=== PATIENT | female | born 2000 | race Caucasian/White ===

== ENCOUNTER 2020-07-11 15:35 | Emergency (ER) | payer BC, SELFPAY ==
--- NOTE | ~2020-07-11 | US_ITS ---
EXAMINATION: US abdomen limited DATE: 07/11/2020 17:44 INDICATION: Right upper quadrant abdominal pain TECHNIQUE: Multiple grayscale and Doppler ultrasound images of the abdomen were obtained. COMPARISON: None FINDINGS: Region of the pancreas is obscured due to patient body habitus. Liver is also suboptimally visualized but has normal echogenicity and contour, with a smooth surface. No liver lesion identified. No intra hepatic biliary duct dilation suspected. Portal venous flow was seen in the hepatopetal, normal direc tion and has normal Doppler waveform. Normal decompressed gallbladder which limits evaluation. No cali dent cholelithiasis. Common bile duct measures 5 mm in diameter which is normal. Visualized portion o f the right kidney demonstrates normal contour and echogenicity with no hydronephrosis. Normal direct ional flow identified in the proximal inferior vena cava which is also poorly visualized. IMPRESSION: 1. Unremarkable but limited right upper quadrant ultrasound due to patient body habitus as well as po stprandial state resulting in a decompressed gallbladder. Reviewed, dictated and finalized at location A. [facility] [employer] IMPRESSION: 1. Unremarkable but limited right upper quadrant ultrasound due to patient body habitus as well as postprandial state resulting in a decompressed gallbladder.
[2020-07-11 15:43] VITALS: BP 140/90; PULSE 98; RESP 15; TEMP 36.9; O2SAT 99
[2020-07-11 15:45] VITALS: RESP 17; TEMP 36.7
[2020-07-11 16:04] LABS: Basophils Percent Auto 0.4 % (0.2-1.2); Eosinophils Absolute Auto 0.1 K/mm3 (0-0.3); Eosinophils Percent Auto 1.3 % (0-4.4); Hematocrit 40.4 % (37.0-47.0); Hemoglobin 13.3 g/dL (12.0-15.0); Immature Granulocyte Absolute 0.05 K/mm3 (0.00-0.031); Immature Granulocyte Percent A 0.6 % (0-0.5); Lymphocytes Absolute Auto 2.75 K/mm3 (0.9-3.2); Lymphocytes Percent Auto 35.5 % (18.3-44.2); Mean Corpuscular HGB Conc 32.9 g/dl (32-36); Mean Corpuscular Hemoglobin 29.1 pg (26-34); Mean Corpuscular Volume 88.4 fl (80-100); Mean Platelet Volume 9.7 fl (7.4-10.4); Monocytes Absolute Auto 0.4 K/mm3 (0.1-0.6); Monocytes Percent Auto 5.2 % (2.6-8.5); Neutrophils Absolute Auto 4.4 K/mm3 (1.3-6.7); Platelet Count Result 329 k/mm3 (150-375); Red Blood Count 4.57 M/mm3 (4.2-5.4); Red Cell Distribution Width 13.6 % (11.5-14.5); White Blood Count 7.7 K/mm3 (4.5-10.0)
[2020-07-11 16:12] LABS: Add Urine Microscopic? YES; Amorphous Sediment Urine Few; Appearance Urine Cloudy (Clear); Bacteria Urine Trace /hpf; Bilirubin Urine Negative (Negative); Blood Urine Negative (Negative); Color Urine Yellow (Yellow); Glucose Urine UA Negative (Negative); Ketones Urine Negative (Negative); Leukocyte Esterase Ur Negative LEU/UL (Negative); Mucus Urine Rare /lpf; Nitrate Urine Negative (Negative); Protein Urine Negative (Negative); RBC Urine 0-2 /hpf (0-2); Specific Grav Ur 1.015 (1.001-1.035); Squamous Epithelial Cell Urine Many /hpf (Few); Urobilinogen Urine Negative mg/dL (<2.0)
[2020-07-11 16:18] LABS: Alanine Aminotransferase 21 U/L (4-35); Albumin Level 4.5 g/dL (3.5-5.1); Alkaline Phosphatase 93 U/L (38-126); Anion Gap 7 mmol/L (8-16); Aspartate Amino Transferase 27 U/L (14-36); Bilirubin,Total 0.4 mg/dL (0.2-1.3); Blood Urea Nitrogen 9 mg/dL (7-17); Calcium 9.1 mg/dL (8.4-10.2); Carbon Dioxide 26 mmol/L (22-30); Chloride 109 mmol/L (98-107); Estimated CRCL calculation 159 ml/min; Estimated Glomerular Filt Rate > 60; Glucose 106 mg/dL (65-105); Lipase 196 U/L (23-300); Potassium 4.2 mmol/L (3.4-5.0); Sodium 142 mmol/L (137-145)
--- NOTE | 2020-07-11 17:09 | ED.ABDPAIN ---
HPI - Abdominal Pain General Chief Complaint: Abdominal Pain Stated Complaint: RUQ ABD PAIN Time Seen by Provider: 07/11/20 16:17 Source: patient Mode of arrival: ambulatory Limitations: no limitations History of Present Illness HPI narrative: This patient is a 20 year old female who presents for evaluation of right upper abdominal pain. She developed pain at at 11 am this morning. She reports her pain is waxing and waning. Her pain is currently 4/10. She has not taken anything for pain. She denies any exacerbating factors. She denies nausea, vomiting, fever, back pain or urinary complaints. Related Data Allergies Allergy/AdvReac Type Severity Reaction Status Date / Time No Known Allergies Allergy Mild Verified 07/11/20 15:47 Review of Systems Review of Systems: All systems reviewed & are unremarkable except as noted in HPI and below PMFSH Past Medical History Medical History (Updated 07/11/20 @ 18:33 by Sonia Woody MD) Patient denies medical problems Surgical History Surgical History (Updated 07/11/20 @ 17:14 by Sonia Woody MD) No significant past surgical history Family History Family History (Updated 02/05/19 @ 09:53 by DOCTOR UNKNOWN) Grandparent Carcinoma of colon Diabetes mellitus Family history of arthritis Family history of chronic obstructive pulmonary disease Father Family history of gastrointestinal disorder Hypertension Mother Family history of diabetes mellitus in first degree relative Social History Social History Smoking status: Never smoker Second hand tobacco smoke exposure: No Alcohol intake: never Gender identity (if verbalized by the patient): Female Exam Const: General: no acute distress and alert Orientation/consciousness: patient oriented x3 HENMT: Head: atraumatic General nose exam: No nasal polyps present Face and sinus: face symmetric Mouth: Yes Normal oral and palatal mucosa present, Yes lip normal, Yes oropharynx normal and Yes moist mucous membranes Throat: posterior oropharynx normal, tonsils normal and uvula midline Eyes: Pupils: Equal, round and reactive pupils present EOM: EOMs intact bilaterally Resp: Effort & Inspection: normal respiratory effort and no retractions Auscultation: clear to auscultation bilaterally Cardio: Rate: regular rate Rhythm: regular rhythm Heart sounds: no murmurs GI: GI Palp: Yes Soft to palpation, Yes Tenderness to palpation present (GI) (RUQ) and No Guarding due to palpation present (GI) Auscultation: normal bowel sounds Back/Spine/Pelvis: Back: no CVA tenderness Skin: General skin exam: normal color Rashes: no rashes Neuro: General: patient oriented x3, moves all extremities and CN's II-XI intact bilaterally Course Reevaluation(s) Reevaluation #1: PAtient reports her pain has improved. She denies sob or signs of dVT. She is PERC negative. I discussed that labs and ultrasound are normal. She will follow up with PCP and eat a low fat diet. Date: 07/11/20 Time: 18:30 Vital Signs Vital signs: Vital Signs Temperature 98.4 F 07/11/20 15:43 Pulse Rate 98 07/11/20 15:43 Respiratory Rate 15 07/11/20 15:43 Blood Pressure 140/90 07/11/20 15:43 Pulse Oximetry 99 07/11/20 15:43 Temperature 98.1 F 07/11/20 15:45 Pulse Rate 78 07/11/20 18:25 Respiratory Rate 18 07/11/20 18:25 Blood Pressure 160/74 H 07/11/20 18:25 Pulse Oximetry 100 07/11/20 18:25 MDM - Abdominal Pain Lab Data Attestation: I reviewed the patient's lab results. Result diagrams: 07/11/20 15:53 07/11/20 15:53 Labs: Lab Results 07/11/20 07/11/20 07/11/20 Range/Units 15:53 15:53 15:58 WBC 7.7 (4.5-10.0) K/mm3 RBC 4.57 (4.2-5.4) M/mm3 Hgb 13.3 (12.0-15.0) g/dL Hct 40.4 (37.0-47.0) % MCV 88.4 (80-100) fl MCH 29.1 (26-34) pg MCHC 32.9 (32-36) g/dl RDW 13.6 (11.5-14.5) % Plt Count 329 (150-375) k/mm3 MPV 9.7
[2020-07-11] MEDS: KETOROLAC 30 MG/ML VIAL (*BKC) IV PUSH (17:19)
[2020-07-11 18:25] VITALS: BP 160/74; PULSE 78; RESP 18; O2SAT 100
== END 2020-07-11 18:45 | disposition home or self-care (01) ==
PROVIDERS: Emergency Medicine; Emergency Provider General Practice; PCP Family Medicine
DX: R10.11 Right upper quadrant pain (principal)
CPT/HCPCS: 36415; 76705; 80053; 81001; 81025; 83690; 85025; 96374; 99284; J1885